=== PATIENT | female | born 1995 | race Caucasian/White ===

== ENCOUNTER → 2017-08-20 | Emergency (ER) | payer MEDICARE, MEDICAID ==
[~2017-08-20] VITALS: Ht 170.2 cm; Wt 57.7 kg
[~2017-08-20] MED LIST: ALBU8HFA PO; CLIN-80 PO; CLIN300C54 PO; MECL12.584 PO; NITR100C6 PO; ONDA8TAB13 PO; ONDA8TAB9 PO; clindamycin 150mg capsule PO ONE; famotidine 20mg tablet PO ONE; ibuprofen tablet 400 MG TABLET PO ONE; mag hydrox/Alum hydrox/simeth 30ml oral suspension PO ONE; ondansetron 4mg rapidly disintigrating tab PO ONE
[2017-08-20 22:25] LABS: COLOR,URINE Yellow (Yellow); GLUCOSE, URINE Negative (Neg); KETONES,URINE Trace mg/dl (Neg); LEUKOCYTE ESTERASE ,URINE Small (Neg); NITRITES, URINE Negative (Neg); OCCULT BLOOD,URINE Negative (Neg); PROTEIN,URINE Negative (Neg); URINE HCG NEGATIVE (NEG)
[2017-08-20 22:30] LABS: CLARITY,URINE Cloudy (Clear); UA COLLECTION TYPE CLN CATCH MIDSTREAM
[2017-08-20 23:05] LABS: BACTERIA,URINE FEW /HPF (Neg); MUCUS STRANDS MANY /LPF (Neg); RBC,URINE NONE SEEN /HPF (0-2); SQUAMOUS EPITHELIAL CELL,UR MODERATE /LPF (FEW)
[2017-08-20 23:06] LABS: AMORPHOUS URATES 1+; WBC CLUMPS,URINE FEW /HPF (NEGATIVE)
[2017-08-20 23:28] VITALS: BP 110/60
== END | disposition home or self-care (01) ==
LOC: ER 20:39
DX: N39.0 Urinary tract infection, site not specified (principal); J06.9 Acute upper respiratory infection, unspecified; R10.13 Epigastric pain; F12.10 Cannabis abuse, uncomplicated; Z88.1 Allergy status to other antibiotic agents; Z88.8 Allergy status to other drugs, medicaments and biological substances; Z79.899 Other long term (current) drug therapy
CPT/HCPCS: 81001; 81025; 87077; 87088; 99284

== ENCOUNTER 2017-10-25 20:09 | Emergency (ER) | payer MEDICARE, MEDICAID ==
[~2017-10-25] VITALS: Ht 167.6 cm; Wt 57.8 kg
[~2017-10-25 20:09] MED LIST changes: -clindamycin 150mg capsule PO ONE; -famotidine 20mg tablet PO ONE; -ibuprofen tablet 400 MG TABLET PO ONE; -mag hydrox/Alum hydrox/simeth 30ml oral suspension PO ONE; -ondansetron 4mg rapidly disintigrating tab PO ONE
[2017-10-25 20:12] VITALS: BP 104/64
[2017-10-25] MEDS ORDERED: DOXY100C43 PO (20:39)
[2017-10-25 21:02] LABS: URINE HCG NEGATIVE (NEG)
== END 2017-10-25 21:19 | disposition home or self-care (01) ==
LOC: ER 20:10
DX: L03.316 Cellulitis of umbilicus (principal); F12.10 Cannabis abuse, uncomplicated; Z79.899 Other long term (current) drug therapy
CPT/HCPCS: 81025; 99283

== ENCOUNTER 2018-05-01 19:43 | Emergency (ER) | payer MEDICARE, MEDICAID ==
[~2018-05-01] VITALS: Ht 175.3 cm; Wt 49.5 kg
[~2018-05-01 19:43] MED LIST changes: -CLIN-80 PO; +CLIN300C85 PO
[2018-05-01] MEDS ORDERED: GUAI10SY2 PO (21:54)
[2018-05-01] MEDS ORDERED: AZIT250T PO (21:54)
[2018-05-01 22:20] VITALS: BP 122/78
== END 2018-05-01 22:23 | disposition home or self-care (01) ==
LOC: ER 19:44
DX: S20.211A Contusion of right front wall of thorax, initial encounter (principal); S05.10XA Contusion of eyeball and orbital tissues, unspecified eye, initial encounter; J20.9 Acute bronchitis, unspecified; R07.89 Other chest pain; F12.90 Cannabis use, unspecified, uncomplicated; Z98.890 Other specified postprocedural states; Z88.1 Allergy status to other antibiotic agents; Z88.8 Allergy status to other drugs, medicaments and biological substances; Z79.899 Other long term (current) drug therapy; W18.39XA Other fall on same level, initial encounter; Y93.89 Activity, other specified; Y92.89 Other specified places as the place of occurrence of the external cause; Y99.8 Other external cause status
CPT/HCPCS: 71045; 99283

== ENCOUNTER 2019-04-17 19:32 | Emergency (ER) | payer MEDICARE, MEDICAID ==
[~2019-04-17] VITALS: Ht 172.7 cm; Wt 56.8 kg
[~2019-04-17 19:32] MED LIST changes: +AZIT250T PO; +CLIN-96 PO; -CLIN300C85 PO
--- NOTE | 2019-04-17 20:00 | NUR ---
SLIGHT TENTING OF THE SKIN TO THE BACK OF HER HAND. SHE SAYS SHE IS DRINKING WATER, BUT HAS LIQUID DIARRHEA AND PERHAPS IS NOT ABSORBING WELL SHE SHOULD BE.
[2019-04-17 20:09] LABS: CLARITY,URINE CLEAR (Clear); COLOR,URINE YELLOW (Yellow); GLUCOSE, URINE NEGATIVE (Neg); KETONES,URINE TRACE mg/dl (Neg); LEUKOCYTE ESTERASE ,URINE NEGATIVE (Neg); NITRITES, URINE NEGATIVE (Neg); OCCULT BLOOD,URINE NEGATIVE (Neg); PROTEIN,URINE NEGATIVE (Neg)
[2019-04-17 20:11] LABS: URINE HCG NEGATIVE (NEG)
[2019-04-17 20:14] LABS: UA COLLECTION TYPE CLN CATCH MIDSTREAM
[2019-04-17 20:50] VITALS: BP 109/70
[2019-04-17] MEDS ORDERED: meclizine 12.5mg tablet PO ONE (20:55)
[2019-04-17] MEDS ORDERED: diphenoxylate/atropine tablet (Lomotil) PO ONE (20:55)
[2019-04-17] MEDS ORDERED: MECL12.584 PO (20:57)
[2019-04-17] MEDS ORDERED: ONDA4TAB6 PO (20:57)
== END 2019-04-17 21:06 | disposition home or self-care (01) ==
LOC: ER 19:34
DX: R42 Dizziness and giddiness (principal); B34.9 Viral infection, unspecified; H55.09 Other forms of nystagmus; F41.9 Anxiety disorder, unspecified; F12.90 Cannabis use, unspecified, uncomplicated; F15.90 Other stimulant use, unspecified, uncomplicated; Z88.1 Allergy status to other antibiotic agents; Z88.8 Allergy status to other drugs, medicaments and biological substances
CPT/HCPCS: 81003; 81025; 99283; J8597

== ENCOUNTER 2020-10-03 09:56 | Emergency (ER) | payer MEDICAID, MEDICARE ==
[~2020-10-03] VITALS: Ht 175.3 cm; Wt 62.0 kg
[~2020-10-03 09:56] MED LIST changes: -CLIN-96 PO; +CLIN-97 PO; +MECL-184 PO; +MECL-226 PO; -MECL12.584 PO; +ONDA4TAB6 PO
[2020-10-03 10:00] VITALS: BP 112/60
[2020-10-03 10:41] LABS: CLARITY,URINE TURBID (Clear); COLOR,URINE YELLOW (Yellow); GLUCOSE, URINE NEGATIVE (Neg); KETONES,URINE NEGATIVE (Neg); LEUKOCYTE ESTERASE ,URINE NEGATIVE (Neg); NITRITES, URINE NEGATIVE (Neg); OCCULT BLOOD,URINE LARGE (Neg); PROTEIN,URINE 30 mg/dl (Neg)
[2020-10-03 10:42] LABS: BASOPHILS % (AUTO) 0.6 % (0-1); EOSINOPHILS # (AUTO) 0.1 X10'3 (0-0.9); HEMATOCRIT 42.5 % (35.0-45.0); HEMOGLOBIN 14.2 g/dl (12.0-16.0); LYMPHOCYTES # (AUTO) 1.6 X10'3 (1.1-4.8); LYMPHOCYTES % (AUTO) 30.6 % (21-51); MEAN CORPUSCULAR HEMOGLOBIN 29.6 PG (27.0-31.0); MEAN CORPUSCULAR HGB CONC 33.3 g/dL (33.0-36.5); MEAN CORPUSCULAR VOLUME 88.9 FL (78-98); MEAN PLATELET VOLUME 8.9 FL (7.4-10.4); MONOCYTES # (AUTO) 0.4 X10'3 (0-0.9); MONOCYTES % (AUTO) 7.6 % (2-12); NEUTROPHILS % (AUTO) 59.2 % (42-75); PLATELET COUNT 197 X10'3 (140-440); RED BLOOD COUNT 4.79 X10'6 (4.20-5.60); RED CELL DISTRIBUTION WIDTH 13.3 % (11.5-14.5); WHITE BLOOD COUNT 5.1 X10'3 (4.5-11.0)
[2020-10-03 10:42] LABS: URINE HCG NEGATIVE (NEG)
[2020-10-03 10:56] LABS: UA COLLECTION TYPE CLN CATCH MIDSTREAM
[2020-10-03 10:58] LABS: ALANINE AMINOTRANSFERASE 19 U/L (12-78); ALBUMIN 4.4 G/DL (3.4-5.0); ALBUMIN/GLOBULIN RATIO 1.3 (1.1-1.5); ALKALINE PHOSPHATASE 48 IU/L (46-116); ANION GAP 11 (8-16); ASPARTATE AMINO TRANSFERASE 14 U/L (10-37); BILIRUBIN,TOTAL 0.6 MG/DL (0.1-1.0); BLOOD UREA NITROGEN 17 MG/DL (7-18); BUN/CREATININE RATIO 22.1 (6.6-38.0); CALCIUM 9.1 MG/DL (8.5-10.1); CHLORIDE 105 MMOL/L (99-107); CREATININE 0.77 MG/DL (0.40-0.90); GLUCOSE 88 MG/DL (70-104); LIPASE 64 U/L (73-393); POTASSIUM 3.8 MMOL/L (3.5-5.1); SODIUM 141 MMOL/L (135-145); TOTAL CARBON DIOXIDE 24.7 MMOL/L (24-32); TOTAL PROTEIN 7.7 G/DL (6.4-8.2); eGFR > 90 ML/MIN
[2020-10-03 11:02] LABS: AMORPHOUS URATES 4+; SQUAMOUS EPITHELIAL CELL,UR MANY /LPF (FEW)
[2020-10-03 11:03] LABS: CAL OXALATE CRYSTALS 1+ /HPF (NEGATIVE)
[2020-10-03 11:04] LABS: BACTERIA,URINE NONE SEEN /HPF (Neg); MUCUS STRANDS MANY /LPF (Neg); RBC,URINE 0-2 /HPF (0-2); WBC,URINE 0-4 /HPF (0-4)
[2020-10-03] MEDS ORDERED: normal saline 1000ML IV soln IVB ONE (11:40)
[2020-10-03] MEDS ORDERED: pantoprazole 40 MG vial IV ONE (11:40)
[2020-10-03] MEDS ORDERED: ondansetron/PF 4mg/2ml inj IV ONE (11:40)
[2020-10-03] MEDS ORDERED: loperamide 2mg capsule PO ONE (11:40)
== END 2020-10-03 12:42 | disposition home or self-care (01) ==
LOC: ER 09:58
DX: K52.9 Noninfective gastroenteritis and colitis, unspecified (principal); F41.9 Anxiety disorder, unspecified; F17.200 Nicotine dependence, unspecified, uncomplicated; F12.90 Cannabis use, unspecified, uncomplicated; F15.90 Other stimulant use, unspecified, uncomplicated; Z79.899 Other long term (current) drug therapy
CPT/HCPCS: 36415; 80053; 81001; 81025; 83690; 85025; 96361; 96374; 96375; 99284; C9113; J2405; J7030

== ENCOUNTER 2020-11-04 02:16 | Emergency (ER) | payer MEDICAID ==
[~2020-11-04] VITALS: Ht 172.7 cm; Wt 66.0 kg
[~2020-11-04 02:16] MED LIST changes: -MECL-184 PO; +MECL-231 PO
[2020-11-04 02:43] VITALS: BP 130/64
[2020-11-04] MEDS ORDERED: AMOX-117 PO (03:02)
[2020-11-04] MEDS ORDERED: amox tr/potassium clavulanate 875/125mg TAB PO ONE (03:05)
[2020-11-04] MEDS ORDERED: ibuprofen tablet 400 MG TABLET PO ONE (03:05)
[2020-11-04] MEDS ORDERED: TETanus/Pertussis (Acell)/Diphther VAC/PF (Tdap-Adult) 0.5ml syringe IMVAC ONE (03:05)
== END 2020-11-04 04:17 | disposition home or self-care (01) ==
LOC: ER 02:16
DX: S51.832A Puncture wound without foreign body of left forearm, initial encounter (principal); S00.211A Abrasion of right eyelid and periocular area, initial encounter; F41.9 Anxiety disorder, unspecified; F12.90 Cannabis use, unspecified, uncomplicated; F15.90 Other stimulant use, unspecified, uncomplicated; Z20.3 Contact with and (suspected) exposure to rabies; Z79.2 Long term (current) use of antibiotics; Z79.899 Other long term (current) drug therapy; W55.01XA Bitten by cat, initial encounter; Y93.89 Activity, other specified; Y92.89 Other specified places as the place of occurrence of the external cause; Y99.8 Other external cause status
CPT/HCPCS: 73090; 90471; 90715; 99283

== ENCOUNTER 2020-12-03 23:50 | Emergency (ER) | payer MEDICAID ==
[~2020-12-03] VITALS: Ht 172.7 cm; Wt 62.7 kg
[2020-12-04 00:22] VITALS: BP 126/73
== END 2020-12-04 01:11 | disposition home or self-care (01) ==
LOC: ER 23:50
DX: H60.01 Abscess of right external ear (principal); F12.90 Cannabis use, unspecified, uncomplicated; F15.90 Other stimulant use, unspecified, uncomplicated; Z79.2 Long term (current) use of antibiotics; Z79.899 Other long term (current) drug therapy
CPT/HCPCS: 99281

== ENCOUNTER 2020-12-16 15:01 | Emergency (ER) | payer MEDICAID ==
[~2020-12-16] VITALS: Ht 172.7 cm; Wt 61.4 kg
[2020-12-16] MEDS ORDERED: normal saline 1000ML IV soln IVB ONE ×3 (15:35→16:40)
[2020-12-16] MEDS ORDERED: diphenhydrAMINE 50 mg/ml inj IV ONE (15:35)
[2020-12-16] MEDS ORDERED: metoclopramide 5 mg/ml inj IV ONE (15:35)
[2020-12-16 15:54] LABS: BASOPHILS % (AUTO) 0.7 % (0-1); EOSINOPHILS # (AUTO) 0.1 X10'3 (0-0.9); EOSINOPHILS % (AUTO) 1.1 % (0-6); HEMOGLOBIN 13.2 g/dl (12.0-16.0); LYMPHOCYTES # (AUTO) 1.3 X10'3 (1.1-4.8); LYMPHOCYTES % (AUTO) 23.5 % (21-51); MEAN CORPUSCULAR HEMOGLOBIN 30.3 PG (27.0-31.0); MEAN CORPUSCULAR HGB CONC 33.8 g/dL (33.0-36.5); MEAN CORPUSCULAR VOLUME 89.6 FL (78-98); MEAN PLATELET VOLUME 9.1 FL (7.4-10.4); MONOCYTES # (AUTO) 0.5 X10'3 (0-0.9); MONOCYTES % (AUTO) 8.8 % (2-12); NEUTROPHILS # (AUTO) 3.7 X10'3 (1.8-7.7); NEUTROPHILS % (AUTO) 65.9 % (42-75); PLATELET COUNT 221 X10'3 (140-440); RED BLOOD COUNT 4.35 X10'6 (4.20-5.60); RED CELL DISTRIBUTION WIDTH 12.8 % (11.5-14.5); WHITE BLOOD COUNT 5.7 X10'3 (4.5-11.0)
[2020-12-16 15:59] LABS: HCG SERUM QL POSITIVE
[2020-12-16 16:01] LABS: ALANINE AMINOTRANSFERASE 26 U/L (12-78); ALBUMIN 3.7 G/DL (3.4-5.0); ALBUMIN/GLOBULIN RATIO 1.2 (1.1-1.5); ALKALINE PHOSPHATASE 46 IU/L (46-116); ANION GAP 10 (8-16); ASPARTATE AMINO TRANSFERASE 9 U/L (10-37); BILIRUBIN,TOTAL 0.5 MG/DL (0.1-1.0); BLOOD UREA NITROGEN 9 MG/DL (7-18); BUN/CREATININE RATIO 12.5 (6.6-38.0); CALCIUM 8.8 MG/DL (8.5-10.1); CHLORIDE 104 MMOL/L (99-107); CREATININE 0.72 MG/DL (0.40-0.90); GLUCOSE 85 MG/DL (70-104); LIPASE < 50 U/L (73-393); SODIUM 138 MMOL/L (135-145); TOTAL CARBON DIOXIDE 24.2 MMOL/L (24-32); TOTAL PROTEIN 6.8 G/DL (6.4-8.2); eGFR > 90 ML/MIN
[2020-12-16 16:09] LABS: CLARITY,URINE CLEAR (Clear); COLOR,URINE YELLOW (Yellow); GLUCOSE, URINE NEGATIVE (Neg); KETONES,URINE 15 mg/dl (Neg); LEUKOCYTE ESTERASE ,URINE NEGATIVE (Neg); NITRITES, URINE NEGATIVE (Neg); OCCULT BLOOD,URINE NEGATIVE (Neg); PH,URINE >=9.0 (4.8-8.0); PROTEIN,URINE 30 mg/dl (Neg); UROBILINOGEN,URINE 0.2 E.U/dL (0.2-1.0)
[2020-12-16 16:13] LABS: RBC,URINE 0-2 /HPF (0-2); UA COLLECTION TYPE VOIDED; WBC,URINE 0-4 /HPF (0-4)
[2020-12-16 16:14] LABS: BACTERIA,URINE FEW /HPF (Neg); MUCUS STRANDS FEW /LPF (Neg); SQUAMOUS EPITHELIAL CELL,UR MANY /LPF (FEW)
[2020-12-16] MEDS ORDERED: ONDA4TAB12 PO (17:48)
[2020-12-16 18:01] VITALS: BP 97/57
== END 2020-12-16 18:03 | disposition home or self-care (01) ==
LOC: ER 15:03
DX: O26.891 Other specified pregnancy related conditions, first trimester (principal); E86.0 Dehydration; Z20.822 Contact with and (suspected) exposure to COVID-19; R11.2 Nausea with vomiting, unspecified; M79.18 Myalgia, other site; R50.9 Fever, unspecified; O99.341 Other mental disorders complicating pregnancy, first trimester; F41.9 Anxiety disorder, unspecified; O99.321 Drug use complicating pregnancy, first trimester; F12.90 Cannabis use, unspecified, uncomplicated; F15.90 Other stimulant use, unspecified, uncomplicated; Z79.899 Other long term (current) drug therapy; Z3A.00 Weeks of gestation of pregnancy not specified
CPT/HCPCS: 36415; 80053; 81001; 83690; 84703; 85025; 87635; 96361; 96374; 96375; 99284; C9803; J1200; J2765; J7030

== ENCOUNTER 2020-12-28 16:16 | Emergency (ER) | payer MEDICAID ==
[~2020-12-28] VITALS: Ht 170.2 cm; Wt 60.0 kg
[~2020-12-28 16:16] MED LIST changes: +ONDA4TAB12 PO
[2020-12-28] MEDS ORDERED: ondansetron/PF 4mg/2ml inj IV ONE (18:30)
[2020-12-28] MEDS ORDERED: famotidine/PF 10 mg/ml inj IV ONE (18:35)
[2020-12-28] MEDS ORDERED: mag hydrox/Alum hydrox/simeth 30ml oral suspension PO ONE (18:35)
[2020-12-28] MEDS ORDERED: dextrose 5%-normal saline 1,000 ML IV SCH (18:35)
[2020-12-28 19:08] LABS: BASOPHILS % (AUTO) 0.3 % (0-1); EOSINOPHILS # (AUTO) 0.1 X10'3 (0-0.9); EOSINOPHILS % (AUTO) 0.6 % (0-6); HEMATOCRIT 40.8 % (35.0-45.0); HEMOGLOBIN 13.8 g/dl (12.0-16.0); LYMPHOCYTES # (AUTO) 1.3 X10'3 (1.1-4.8); LYMPHOCYTES % (AUTO) 13.5 % (21-51); MEAN CORPUSCULAR HEMOGLOBIN 30.4 PG (27.0-31.0); MEAN CORPUSCULAR HGB CONC 33.8 g/dL (33.0-36.5); MEAN PLATELET VOLUME 8.9 FL (7.4-10.4); MONOCYTES # (AUTO) 0.6 X10'3 (0-0.9); MONOCYTES % (AUTO) 6.2 % (2-12); NEUTROPHILS # (AUTO) 7.8 X10'3 (1.8-7.7); NEUTROPHILS % (AUTO) 79.4 % (42-75); PLATELET COUNT 252 X10'3 (140-440); RED BLOOD COUNT 4.54 X10'6 (4.20-5.60); RED CELL DISTRIBUTION WIDTH 13.2 % (11.5-14.5); WHITE BLOOD COUNT 9.8 X10'3 (4.5-11.0)
[2020-12-28 19:19] LABS: ALANINE AMINOTRANSFERASE 68 U/L (12-78); ALBUMIN 3.7 G/DL (3.4-5.0); ALBUMIN/GLOBULIN RATIO 1.1 (1.1-1.5); ALKALINE PHOSPHATASE 44 IU/L (46-116); ANION GAP 10 (8-16); ASPARTATE AMINO TRANSFERASE 62 U/L (10-37); BILIRUBIN,TOTAL 0.7 MG/DL (0.1-1.0); BLOOD UREA NITROGEN 10 MG/DL (7-18); BUN/CREATININE RATIO 14.1 (6.6-38.0); CALCIUM 8.3 MG/DL (8.5-10.1); CHLORIDE 103 MMOL/L (99-107); CREATININE 0.71 MG/DL (0.40-0.90); GLUCOSE 80 MG/DL (70-104); SODIUM 138 MMOL/L (135-145); TOTAL CARBON DIOXIDE 24.7 MMOL/L (24-32); eGFR > 90 ML/MIN
[2020-12-28 19:39] LABS: LIPASE < 50 U/L (73-393); MAGNESIUM 2.3 MG/DL (1.5-2.4)
[2020-12-28 19:42] LABS: BETA HCG,QUANTITATIVE 128724 mIU/ml; POTASSIUM 4.3 MMOL/L (3.5-5.1)
[2020-12-28 19:43] LABS: CLARITY,URINE SLIGHTLY CLOUDY (Clear); GLUCOSE, URINE 100 mg/dl (Neg); KETONES,URINE 15 mg/dl (Neg); LEUKOCYTE ESTERASE ,URINE NEGATIVE (Neg); NITRITES, URINE NEGATIVE (Neg); OCCULT BLOOD,URINE NEGATIVE (Neg); PROTEIN,URINE NEGATIVE (Neg)
[2020-12-28 19:51] LABS: COLOR,URINE DARK YELLOW (Yellow); UA COLLECTION TYPE CLN CATCH MIDSTREAM
[2020-12-28 19:52] LABS: WBC,URINE 0-4 /HPF (0-4)
[2020-12-28 19:53] LABS: AMORPHOUS URATES 1+; BACTERIA,URINE FEW /HPF (Neg); MUCUS STRANDS MODERATE /LPF (Neg); RBC,URINE NONE SEEN /HPF (0-2); SQUAMOUS EPITHELIAL CELL,UR FEW /LPF (FEW)
[2020-12-28 19:54] LABS: URINE AMPHETAMINE SCREEN NEGATIVE (Neg); URINE BARBITUATE SCREEN NEGATIVE (Neg); URINE BENZODIAZEPINES SCREEN NEGATIVE (Neg); URINE CANNABINOID SCREEN POSITIVE (Neg); URINE COCAINE SCREEN NEGATIVE (Neg); URINE METHADONE SCREEN NEGATIVE (Neg); URINE OPIATE SCREEN NEGATIVE (Neg); URINE PHENCYCLIDINE SCREEN NEGATIVE (Neg)
[2020-12-28] MEDS ORDERED: ONDA4TAB6 PO (20:18)
[2020-12-28] MEDS ORDERED: PNV1TABL7 PO (20:18)
[2020-12-28] MEDS ORDERED: FAMO40TA73 PO (20:18)
[2020-12-28 20:38] VITALS: BP 105/67
== END 2020-12-28 20:42 | disposition home or self-care (01) ==
LOC: ER 16:17
DX: O26.891 Other specified pregnancy related conditions, first trimester (principal); R10.13 Epigastric pain; O21.9 Vomiting of pregnancy, unspecified; F41.9 Anxiety disorder, unspecified; F12.10 Cannabis abuse, uncomplicated; F15.10 Other stimulant abuse, uncomplicated; Z79.899 Other long term (current) drug therapy
CPT/HCPCS: 36415; 80053; 80305; 81001; 83690; 83735; 84702; 85025; 96365; 96366; 96375; 99284; J2405; J3490; J7042; 96361; 96374

== ENCOUNTER 2021-01-27 18:50 | Emergency (ER) | payer MEDICAID ==
[~2021-01-27] VITALS: Ht 172.7 cm; Wt 57.7 kg
[~2021-01-27 18:50] MED LIST changes: +FAMO40TA73 PO; +PNV1TABL7 PO
[2021-01-27 19:40] VITALS: BP 109/76
[2021-01-27] MEDS ORDERED: ondansetron 4mg rapidly disintigrating tab PO ONE (19:50)
[2021-01-27 20:11] LABS: CLARITY,URINE CLOUDY (Clear); COLOR,URINE YELLOW (Yellow); GLUCOSE, URINE NEGATIVE (Neg); KETONES,URINE >=80 mg/dl (Neg); LEUKOCYTE ESTERASE ,URINE SMALL (Neg); NITRITES, URINE NEGATIVE (Neg); OCCULT BLOOD,URINE NEGATIVE (Neg); PH,URINE 6.5 (4.8-8.0); PROTEIN,URINE NEGATIVE (Neg); UROBILINOGEN,URINE 0.2 E.U/dL (0.2-1.0)
[2021-01-27 20:21] LABS: UA COLLECTION TYPE CLN CATCH MIDSTREAM
[2021-01-27 20:22] LABS: AMORPHOUS PHOSPHATES 2+; BACTERIA,URINE FEW /HPF (Neg); RBC,URINE NONE SEEN /HPF (0-2); SQUAMOUS EPITHELIAL CELL,UR FEW /LPF (FEW); WBC,URINE 0-4 /HPF (0-4)
--- NOTE | 2021-01-27 21:58 | NUR ---
pt c/o dizziness, n/v x1 day, vomited 8x today, pt is 4 months , usually vomits once a day, , has 1st appt with OB 01/31, received zofran earlier, has not thrown up since, waiting to be evaluated by provider
--- NOTE | 2021-01-27 22:03 | NUR ---
Dr Ward at bedside
[2021-01-27] MEDS ORDERED: ONDA4TAB6 PO (22:05)
== END 2021-01-27 22:52 | disposition home or self-care (01) ==
LOC: ER 18:51
DX: O21.9 Vomiting of pregnancy, unspecified (principal); R10.84 Generalized abdominal pain; F41.9 Anxiety disorder, unspecified; F12.90 Cannabis use, unspecified, uncomplicated; F15.90 Other stimulant use, unspecified, uncomplicated; Z3A.16 16 weeks gestation of pregnancy; Z79.2 Long term (current) use of antibiotics; Z79.899 Other long term (current) drug therapy
CPT/HCPCS: 81001; 87088; 99283

== ENCOUNTER 2021-01-29 13:20 | Emergency (ER) | payer MEDICAID ==
[~2021-01-29] VITALS: Ht 172.7 cm; Wt 57.7 kg
[2021-01-29 14:37] LABS: BASOPHILS % (AUTO) 0.4 % (0-1); EOSINOPHILS % (AUTO) 0.1 % (0-6); HEMATOCRIT 37.5 % (35.0-45.0); HEMOGLOBIN 12.6 g/dl (12.0-16.0); LYMPHOCYTES # (AUTO) 1.3 X10'3 (1.1-4.8); LYMPHOCYTES % (AUTO) 15.1 % (21-51); MEAN CORPUSCULAR HEMOGLOBIN 30.1 PG (27.0-31.0); MEAN CORPUSCULAR HGB CONC 33.7 g/dL (33.0-36.5); MEAN CORPUSCULAR VOLUME 89.3 FL (78-98); MEAN PLATELET VOLUME 8.1 FL (7.4-10.4); MONOCYTES # (AUTO) 0.6 X10'3 (0-0.9); MONOCYTES % (AUTO) 7.1 % (2-12); NEUTROPHILS # (AUTO) 6.7 X10'3 (1.8-7.7); NEUTROPHILS % (AUTO) 77.3 % (42-75); PLATELET COUNT 242 X10'3 (140-440); RED CELL DISTRIBUTION WIDTH 13.4 % (11.5-14.5); WHITE BLOOD COUNT 8.6 X10'3 (4.5-11.0)
[2021-01-29 14:52] LABS: ALANINE AMINOTRANSFERASE 30 U/L (12-78); ALBUMIN 3.5 G/DL (3.4-5.0); ALBUMIN/GLOBULIN RATIO 1.1 (1.1-1.5); ALKALINE PHOSPHATASE 34 IU/L (46-116); AMYLASE 63 U/L (25-115); ANION GAP 9 (8-16); ASPARTATE AMINO TRANSFERASE 20 U/L (10-37); BILIRUBIN,TOTAL 0.4 MG/DL (0.1-1.0); BLOOD UREA NITROGEN 8 MG/DL (7-18); BUN/CREATININE RATIO 13.1 (6.6-38.0); CALCIUM 9.6 MG/DL (8.5-10.1); CHLORIDE 104 MMOL/L (99-107); CREATININE 0.61 MG/DL (0.40-0.90); GLUCOSE 84 MG/DL (70-104); LIPASE < 50 U/L (73-393); POTASSIUM 3.9 MMOL/L (3.5-5.1); SODIUM 138 MMOL/L (135-145); TOTAL PROTEIN 6.8 G/DL (6.4-8.2); eGFR > 90 ML/MIN
[2021-01-29] MEDS ORDERED: CYCL-1 PO (17:25)
[2021-01-29] MEDS ORDERED: ondansetron 4mg rapidly disintigrating tab PO ONE (17:45)
[2021-01-29] MEDS ORDERED: normal saline 1000ML IV soln IVB ONE (17:45)
[2021-01-29 18:27] LABS: CLARITY,URINE CLOUDY (Clear); COLOR,URINE YELLOW (Yellow); GLUCOSE, URINE NEGATIVE (Neg); KETONES,URINE 40 mg/dl (Neg); LEUKOCYTE ESTERASE ,URINE TRACE (Neg); NITRITES, URINE NEGATIVE (Neg); OCCULT BLOOD,URINE NEGATIVE (Neg); PH,URINE 6.5 (4.8-8.0); PROTEIN,URINE NEGATIVE (Neg); UROBILINOGEN,URINE 0.2 E.U/dL (0.2-1.0)
[2021-01-29 18:39] LABS: BETA HCG,QUANTITATIVE 65304 mIU/ml
[2021-01-29 18:47] LABS: UA COLLECTION TYPE VOIDED
[2021-01-29 18:57] LABS: SQUAMOUS EPITHELIAL CELL,UR MODERATE /LPF (FEW)
[2021-01-29 18:58] LABS: AMORPHOUS PHOSPHATES 4+; MUCUS STRANDS MANY /LPF (Neg)
[2021-01-29 18:59] LABS: BACTERIA,URINE FEW /HPF (Neg); RBC,URINE NONE SEEN /HPF (0-2)
[2021-01-29] MEDS ORDERED: DOXY1TAB3 PO (19:13)
[2021-01-29] MEDS ORDERED: ONDA4TAB12 PO (19:14)
--- NOTE | 2021-01-29 19:19 | NUR ---
given zofran odt 4 mg aprox 10 min ago and pt reports nausea is gone. piv in place after 4 attempts, no infusing 1 liter ns.
[2021-01-29] MEDS ORDERED: NITR100C6 PO (20:09)
[2021-01-29 20:22] VITALS: BP 99/59
== END 2021-01-29 20:33 | disposition home or self-care (01) ==
LOC: ER 13:21
DX: O21.9 Vomiting of pregnancy, unspecified (principal); R10.84 Generalized abdominal pain; R42 Dizziness and giddiness; F41.9 Anxiety disorder, unspecified; F12.90 Cannabis use, unspecified, uncomplicated; F15.90 Other stimulant use, unspecified, uncomplicated; Z3A.16 16 weeks gestation of pregnancy; Z79.2 Long term (current) use of antibiotics; Z79.899 Other long term (current) drug therapy
CPT/HCPCS: 36415; 80053; 81001; 82150; 83690; 84702; 85025; 87088; 96360; 99283; J7030